=== PATIENT | male | born 1935 | race Caucasian/White ===

== ENCOUNTER 2020-10-31 15:13 | Emergency (ER) | payer MEDICARE, OTHER ==
--- NOTE | 2020-10-31 15:34 | EDM.PDOC ---
ED HPI GENERAL MEDICAL PROBLEM - General Stated Complaint: ER VISIT Time Seen by Provider: 10/31/20 15:15 Source of Information: Reports: Patient, EMS, Old Records History Limitations: Reports: Altered Mental Status (History of dementia.) - History of Present Illness INITIAL COMMENTS - FREE TEXT/NARRATIVE: Patient [facility] with concerns of respiratory issues and hypotension. HPI is primarily obtained from the [facility] and patient's clinic notes as he has dementia and really does not answer questions appropriately. When I ask him any questions about his review of systems such as chest pain shortness of breath he states the only time he has any shortness of breath or chest pain is when the nurses are talking to him. He otherwise denies any complaints and is not sure why he is in the emergency department. He knows he lives in [place] confused that he is at the hospital. He is confused that he lives in a [facility]. He does not know what year it is. According to EMS report the patient has had decreased level of activity some questionable wheezing and some hypotension he had a blood pressure in the 80s systolically when he was sitting at lunch. He just recently got over antibiotics for a lower respiratory tract infection. Upon EMS arrival his oxygen saturation was approximately 90%. They noted some wheezing he received a DuoNeb. He did not complain anything to them. He did have a blood pressure initially when he was sitting in the 80s systolically although when he was laying flat it was in the 130s. 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 We are unsure if he is received his Covid vaccine. - Related Data Allergies Allergy/AdvReac Type Severity Reaction Status Date / Time No Known Allergies Allergy Verified 05/05/15 08:33 Home Meds: Home Meds Betamethasone Dipropionate [Diprosone 0.05% Lotion] 1 dose TOP BID PRN 10/31/20 [History] Cyanocobalamin (Vitamin B-12) [Vitamin B-12] 1,000 mcg PO DAILY 10/31/20 [History] Furosemide [Lasix] 20 mg PO DAILY #15 tab 10/31/20 [Rx] L.acidoph,Paracasei, B.lactis [Probiotic] 1 each PO DAILY 10/31/20 [History] Levothyroxine Sodium [Levothyroxine] 137 mcg PO DAILY 10/31/20 [History] Memantine HCl [Namenda] 10 mg PO BID 10/31/20 [History] Tamsulosin [Tamsulosin 24 Hr] 0.8 mg PO DAILY 10/31/20 [History] Warfarin [Coumadin] 2.5 mg PO MOWEFR 10/31/20 [History] Warfarin [Coumadin] 5 mg PO SUTUTHSA 10/31/20 [History] bisacodyL [Bisacodyl] 5 mg PO DAILY PRN 10/31/20 [History] diphenhydrAMINE [Benadryl] 25 mg PO Q4H PRN 10/31/20 [History] guaiFENesin [Mucinex] 600 mg PO BID PRN 10/31/20 [History] guaiFENesin/Dextromethorphan [Guaifenesin Dm Syrup] 10 ml PO Q4H PRN 10/31/20 [History] hydrOXYzine HCL [Atarax] 25 mg PO DAILY 10/31/20 [History] hydrOXYzine HCL [Atarax] 25 mg PO Q6H PRN 10/31/20 [History] lisinopriL [Lisinopril] 2.5 mg PO DAILY 10/31/20 [History] ED ROS GENERAL - Review of Systems Review Of Systems: Comprehensive ROS is negative, except as noted in HPI. ED EXAM, GENERAL - Physical Exam Exam: See Below Exam Limited By: Altered Mental Status (Patient is pleasantly confused with dementia. He is not agitated. He is cooperative. But his answers are not appropriate for the questions) General Appearance: Alert, WD/WN, No Apparent Distress Eye Exam: Bilateral Eye: EOMI, PERRL Ears: Normal External Exam Nose: Normal Inspection Throat/Mouth: Normal Inspection Head: Atraumatic, Normocephalic Neck: Normal Inspection Respiratory/Chest: No Respiratory Distress, No Accessory Muscle Use, Chest Non- Tender, Rales (Bilaterally). No: Respiratory Distress, Rhonchi, Wheezing, Accessory Muscle Use, Retractions Cardiovascular: Normal Peripheral Pulses, No Rub, Systolic Murmur, Irregularly Irregular Peripheral Pulses: 2+: Radial (L), Radial (R), Posterior Tibial (L), Posterior Tibial (R), Dorsalis Pedis (L), Dorsalis Pedis (R) GI/Abdominal: Normal Bowel Sounds, Soft, Non-Tender, Pelvis Stable (Male) Exam: Deferred Rectal (Males) Exam: Deferred Back Exam: Normal Inspection Extremities: Normal Inspection, No Pedal Edema, Normal Capillary Refill Neurological: Alert, CN II-XII Intact, No Motor/Sensory Deficits, Confused Psychiatric: Normal Affect, Normal Mood Skin Exam: Warm, Dry, Intact, Normal Color, No Rash Course - Vital Signs Last Recorded V/S: Last Vital Signs Temp 98.8 F 10/31/20 15:15 Pulse 65 10/31/20 15:15 Resp 20 10/31/20 15:15 BP 132/80 10/31/20 15:15 Pulse Ox 88 L 10/31/20 15:15 - Orders/Labs/Meds Orders: Active Orders 24 hr Category Date Time Status PROCALCITONIN [REF] Stat Lab 10/31/20 15:30 Received Labs: Laboratory Tests 10/31/20 10/31/20 10/31/20 Range/Units 15:30 15:30 15:30 WBC 8.4 (4.0-10.0) x10^3/uL RBC 5.17 (4.5-6.0) x10^6/uL Hgb 14.8 (14.0-18.0) g/dL Hct 44.5 (40.0-52.0) % MCV 86.1 (78.0-93.0) fL MCH 28.6 (26.0-32.0) pg MCHC 33.3 (32.0-36.0) g/dL RDW Coeff of Herb 16.0 H (10.0-15.0) % Plt Count 165 (130-400) x10^3/uL Neut % (Auto) 58.4 (50.0-80.0) % Lymph % (Auto) 28.2 (25.0-50.0) % [place] % (Auto) 9.8 (2.0-11.0) % Eos % (Auto) 3.2 (0.0-4.0) % Baso % (Auto) 0.4 (0.2-1.2) % PT 17.5 H (9.9-12.5) SEC INR 1.6 L (2.0-3.5) APTT 29.6 (25.6-32.8) SEC VBG pH (7.33-7.43) pH VBG pCO2 (41-51) mmHG VBG pO2 mmHG VBG HCO3 (22-29) mmol/L VBG Total CO2 (23-30) mmol/L VBG O2 Saturation % VBG Base Excess ((-2)-3) mmol/L Sodium 143 (136-145) mmol/L Potassium 4.7 (3.5-5.1) mmol/L Chloride 106 (98-107) mmol/L Carbon Dioxide 25 (21-32) mmol/L Anion Gap 16.7 H (5-15) mmol/L BUN 27 H (7-18) mg/dL Creatinine 1.4 H (0.70-1.30) mg/dL Est Cr Clr Drug Dosing TNP Estimated GFR (MDRD) 48 Glucose 72 (70-99) mg/dL Lactic Acid (0.4-2.0) mmol/L Calcium 8.4 L (8.5-10.1) mg/dL Corrected Calcium 9.0 (8.5-10.1) mg/dL Magnesium 2.2 (1.8-2.4) mg/dL Total Bilirubin 0.5 (0.2-1.0) mg/dL AST 12 L (15-37) U/L ALT 24 (16-63) U/L Alkaline Phosphatase 85 (46-116) U/L Troponin I High Sens 10 (<=76) ng/L C-Reactive Protein 1.1 H (<=0.9) mg/dL NT-Pro-B Natriuret Pep 2377 H (<=450) pg/mL Total Protein 7.7 (6.4-8.2) g/dL Albumin 3.3 L (3.4-5.0) g/dL Globulin 4.4 Albumin/Globulin Ratio 0.75 10/31/20 10/31/20 Range/Units 15:30 15:30 WBC (4.0-10.0) x10^3/uL RBC (4.5-6.0) x10^6/uL Hgb (14.0-18.0) g/dL Hct (40.0-52.0) % MCV (78.0-93.0) fL MCH (26.0-32.0) pg MCHC (32.0-36.0) g/dL RDW Coeff of Herb (10.0-15.0) % Plt Count (130-400) x10^3/uL Neut % (Auto) (50.0-80.0) % Lymph % (Auto) (25.0-50.0) % [place] % (Auto) (2.0-11.0) % Eos % (Auto) (0.0-4.0) % Baso % (Auto) (0.2-1.2) % PT (9.9-12.5) SEC INR (2.0-3.5) APTT (25.6-32.8) SEC VBG pH 7.37 (7.33-7.43) pH VBG pCO2 45 (41-51) mmHG VBG pO2 47 mmHG VBG HCO3 26 (22-29) mmol/L VBG Total CO2 27 (23-30) mmol/L VBG O2 Saturation 81 % VBG Base Excess 0 ((-2)-3) mmol/L Sodium (136-145) mmol/L Potassium (3.5-5.1) mmol/L Chloride (98-107) mmol/L Carbon Dioxide (21-32) mmol/L Anion Gap (5-15) mmol/L BUN (7-18) mg/dL Creatinine (0.70-1.30) mg/dL Est Cr Clr Drug Dosing Estimated GFR (MDRD) Glucose (70-99) mg/dL Lactic Acid 1.3 (0.4-2.0) mmol/L Calcium (8.5-10.1) mg/dL Corrected Calcium (8.5-10.1) mg/dL Magnesium (1.8-2.4) mg/dL Total Bilirubin (0.2-1.0) mg/dL AST (15-37) U/L ALT (16-63) U/L Alkaline Phosphatase (46-116) U/L Troponin I High Sens (<=76) ng/L C-Reactive Protein (<=0.9) mg/dL NT-Pro-B Natriuret Pep (<=450) pg/mL Total Protein (6.4-8.2) g/dL Albumin (3.4-5.0) g/dL Globulin Albumin/Globulin Ratio Meds: Medications Discontinued Medications Generic Name Dose Route Start Last Admin Trade Name Laura PRN Reason Stop Dose Admin Furosemide 20 mg 10/31/20 17:05 10/31/20 17:11 Furosemide 20 Mg/2 Ml Vial IV 10/31/20 17:06 20 mg ONETIME ONE Administration - Radiology Interpretation Free Text/Narrative:: Chest x-ray initially reviewed extemporaneously by myself showed some concern of heart failure. No hemopneumothorax. Chest x-ray per radiology shows mild congestive heart failure. Low lung volumes with bibasilar atelectasis. - Re-Assessments/Exams Free Text/Narrative Re-Assessment/Exam: 10/31/20 21:11 The patient initially had oxygen saturation at 88% on room air he was placed on 2 L. Laboratory evaluation with a rather unremarkable CBC. Normal venous blood gases. CMP with a creatinine of 1.4 and a BUN at 27 which is minimally up from his baseline of about 1.1 and 20. Liver enzymes are unremarkable. Troponin is negative at 10. Lactic acid is also negative at 1.3. CRP 1.1. proBNP 2377 While the patient is in the emergency department he rested quite comfortably. We are actually able to keep the oxygen off of him and his sats stayed at 96% on room air. I did speak with the patient's primary care provider about my concern with the chest x-ray concerning for congestive heart failure as well as his elevated proBNP this is most likely the cause of his rails and his decreased activity that has been reported at the [facility]. Although he is alert appropriate for his dementia and without any distress. We will start him on some Lasix he was given 20 mg IV in the emergency department we will place him on 20 mg at the [facility] to be continued. We will have him watch his blood pressures over the next week and have these communicated with his primary care provider. Anything new or worse he is to recheck. Patient's blood pressure while he was sitting in the emergency department was about 140 systolically. Departure - Departure Time of Disposition: 17:07 Disposition: DC/Tfer to [facility] 03 Clinical Impression: CHF, Congestive heart failure, Acute kidney injury - Discharge Information Prescriptions: Furosemide [Lasix] 20 mg PO DAILY #15 tab Instructions: Heart Failure, Self Care, [id number], Heart Failure, Diagnosis, [id number] Referrals: Kasey Hillman DO [Primary Care Provider] - Forms: ED Department Discharge Additional Instructions: Return to the detention. Continue previous therapies. Start Lasix 20mg daily, first dose given in the ED and RX sent to [facility]. Fax Dr. Hillman next week with daily BP and HR for following. Recheck in the ED if new or worsening symptoms. Sepsis Event Note (ED) - Focused Exam Vital Signs: Vital Signs Temp Pulse Resp BP Pulse Ox 10/31/20 15:15 98.8 F 65 20 132/80 88 L - My Orders Last 24 Hours: My Active Orders 10/31/20 15:30 PROCALCITONIN [REF] Stat - Assessment/Plan Last 24 Hours: My Active Orders 10/31/20 15:30 PROCALCITONIN [REF] Stat
[2020-10-31 15:41] LABS: BASE EXCESS VENOUS 0 mmol/L ((-2)-3); BICARBONATE,VENOUS 26 mmol/L (22-29); O2 SATURATION VENOUS 81 %; PCO2 VENOUS 45 mmHG (41-51); PH,VENOUS 7.37 pH (7.33-7.43); PO2 VENOUS 47 mmHG
[2020-10-31 15:53] LABS: PTT,PARTIAL THROMBOPLSTIN TIME 29.6 SEC (25.6-32.8)
--- NOTE | 2020-10-31 16:02 | CR ---
[id number] RAD/RAD Chest PA or AP 1V EXAM: FRONTAL CHEST INDICATION: HYPOXIA, QUESTION CONGESTIVE HEART FAILURE. COMPARISON: February 08, 2013. DISCUSSION: Low lung volumes. Mild to moderate elevation right hemidiaphragm. Cardiomegaly with development of mild to moderate central vascular congestion. Volume loss in both lung bases could obscure other underlying pathology. IMPRESSION: 1. Mild congestive heart failure. 2. Low lung volumes with bibasilar atelectasis. Bobby Spencer MD 10/31/20 1600 Thank you for allowing us to participate in the care of your patient.
[2020-10-31 16:07] LABS: CHLORIDE,CL 106 mmol/L (98-107); SODIUM,NA 143 mmol/L (136-145)
[2020-10-31 16:09] LABS: ANION GAP 16.7 mmol/L (5-15)
[2020-10-31 16:35] VITALS: BP 132/80; PULSE 65
--- NOTE | 2020-10-31 16:40 | PCM.EKG ---
#1 Interpretation EKG Date: 10/31/20 Time: 15:48 Rhythm: A-Fib Rate (Beats/Min): 67 [place]: RAD-Right [place] Deviation P-Wave: Absent QRS: Normal ST-T: Normal QT: Normal Comparison: No Change
[2020-10-31] MEDS ORDERED: Furosemide 20 MG/2 ML VIAL IV ONE (17:05)
== END 2020-10-31 18:00 ==
LOC: VM.ED 15:13
DX: I50.9 Heart failure, unspecified (principal); N17.9 Acute kidney failure, unspecified; R41.0 Disorientation, unspecified; F03.90 Unspecified dementia, unspecified severity, without behavioral disturbance, psychotic disturbance, mood disturbance, and anxiety; E03.9 Hypothyroidism, unspecified; Z79.899 Other long term (current) drug therapy
CPT/HCPCS: 71045; 80053; 82803; 83605; 83735; 83880; 84145; 84484; 85025; 85610; 85730; 86140; 93005; 96374; 99283; 99285-25; J1940

== ENCOUNTER 2020-11-03 11:06 | Inpatient (IN) | payer MEDICARE, OTHER ==
[2020-11-03] MEDS ORDERED: Sodium Chloride 0.9% 10 ML Syringe FLUSH PRN (12:43)
[2020-11-03] MEDS ORDERED: Furosemide 20 MG/2 ML VIAL IV ONE (12:57)
[2020-11-03] MEDS ORDERED: diphenhydrAMINE 25 MG Cap PO PRN (12:57)
[2020-11-03] MEDS ORDERED: Bisacodyl 5 MG Tab PO PRN (12:57)
[2020-11-03] MEDS ORDERED: hydrOXYzine HCl 25 MG Tab PO PRN (12:57)
[2020-11-03] MEDS ORDERED: guaiFENesin 600 MG Tab.ER PO PRN (13:00)
[2020-11-03 14:00] LABS: ANION GAP 14.3 mmol/L (5-15)
--- NOTE | 2020-11-03 14:22 | CR ---
[id number] RAD/RAD Chest PA or AP 1V EXAM: RAD Chest PA or AP 1V INDICATION: HYPOXIA, CRACKLE AND WHEEZING CHEST. COMPARISON: October 31, 2020. DISCUSSION: Cardiomediastinal silhouette is interval. Central pulmonary vascular congestion. Patchy opacifications overlying the lungs bilaterally most pronounced at the left lung base. No pneumothorax or pleural effusion. IMPRESSION: Findings most consistent with CHF exacerbation. Derek Key DO 11/03/20 1421 Thank you for allowing us to participate in the care of your patient.
[2020-11-03] MEDS: Memantine 10 MG Tab PO SCH (19:44)
--- NOTE | 2020-11-03 19:49 | HP ---
CHIEF COMPLAINT: Hypoxia. HISTORY OF PRESENT ILLNESS: This is an 84-year-old with shortness of breath and cough over several weeks. In fact, he was seen in the clinic on 10/20/2020 for his symptoms, diagnosed with bronchitis, placed on doxycycline for seven days and encouraged to return if not improving. It should also be noted he had normal white count on 10/20/2020, and kidney function was normal. ESR was normal. Then, on 10/31/2020, he had low blood pressures at the [facility]. He had not been on scheduled Lasix, only p.r.n.; came in, blood pressure was actually 130 in the ER and he was evaluated and worked up for his shortness of breath and hypotension. X-ray was showing fluid congestion and his proBNP was over 2300. He was started on Lasix 20 mg daily. However, he really has not improved, his lungs continue to sound rattly. He has had sats in like the 84 to 91% range, on room air 84%, but he does not always leave on his oxygen. He has been lethargic. He falls asleep at meals. He needs wheelchair rides and it is just not his normal routine. He has been eating and drinking okay and drank 1000 mL of fluid, and urine output was four times in a 12-hour shift. He does have a history of BPH and is on Flomax. He has dementia, so the history is limited from him. Well, he asked me if he is in [place] or [place]. Also, the patient has some poor teeth. He was supposed to have them pulled, some dental work in a couple of weeks, but denies that they are causing him any pain, and his T-max was 99.1. ALLERGIES: Include penicillin and lanolin. MEDICATIONS: His medication list currently includes the Lasix 20 mg daily; B12 1000 mcg daily; Flomax 0.8 at bedtime; Coumadin is as directed per the [facility] which would be 5 mg on Tuesday, Tuesday, , and Tuesday and 2.5 the rest of the week. He is also on steroid creams, Atarax for itching, Namenda 10 mg twice daily, levothyroxine 137 mcg daily, lisinopril 2.5 daily. PAST MEDICAL HISTORY: Does include the BPH; chronic atrial fibrillation, on successful cardioversions in the past; dilated aortic root with aortic regurgitation; essential hypertension; hypothyroidism; moderate dementia without behavioral disturbance; Alzheimer. PAST SURGICAL HISTORY: Surgically, has had a TURP in the past for enlarged prostate. He has also had tonsil surgery; back surgery; lumbar disk surgery; hydrocelectomy on the left; hernia repair on the right, inguinal; eye surgery for cataracts. FAMILY HISTORY: Both parents are . He had two brothers , sister of lung disease. SOCIAL HISTORY: He is . He is a nonsmoker, nondrinker. He has a son Porfirio whom I spoke with on the phone, , who lives out of state. REVIEW OF SYSTEMS: Constitutional: The patient is not aware of any weight changes, but based on [facility] weights, he was up 15 pounds in the two months from 08/2020. He has not had any fever, chills. No leg swelling. No trouble swallowing. Cardiac: He denies any chest pain. No palpitations. Respiratory: He has not noticed that he is short of breath. He is not coughing by his report. Otherwise, all systems reviewed and found to be negative unless otherwise stated. LABORATORY DATA: Last echo showed an EF of 60% back in 10/2016, and he had moderate aortic regurgitation at that time. Otherwise, the EKG did show atrial fibrillation. White count normal at 9.6, hemoglobin 13.8, platelets 154, ESR 22, INR 2.1, sodium 141, potassium 4.3, chloride 104, bicarb 27, BUN 30, creatinine 1.3, glucose 94, lactic 0.7, calcium 8.5, bilirubin 1, AST 14, ALT 22, troponin 9, CRP 11, proBNP up to 2911, albumin 3.2. COVID testing negative. Chest x-ray shows pulmonary congestion consistent with CHF. ASSESSMENT AND PLAN: 1. Acute on chronic diastolic heart failure exacerbation with known ejection fraction of 60%. The patient will start on IV Lasix, 20 mg IV given x1. We will continue to monitor his blood pressure closely and adjust the dose as able. 2. Urinary retention. Postvoid was 600. A Lama will be placed for strict in's and out's and to allow for appropriate diuresis. This will allow me to hold the Flomax to aid better diuresis. 3. Atrial fibrillation. He is currently rate controlled. We will continue Coumadin. 4. Essential hypertension. I will hold his lisinopril if his systolic blood pressure is under 100. He does not have a history of systolic blood pressure. 5. Dementia. We will continue his Namenda. 6. Need for dental work. He is not currently having any pain. He is not having a fever or signs of infection. The patient will be admitted for acute cares for IV diuresis. We will repeat his lab work tomorrow. Given his atrial fibrillation, we will monitor him on telemetry to ensure no tachycardia. Anticipate he will be in the hospital at least two nights. He is a code level 3. MKA: 11/03/2020 16:44:01 MODL: 11/03/2020 19:42:18 /[id number]
[2020-11-03] MEDS ORDERED: Tamsulosin 0.4 MG Cap.ER PO SCH (20:00)
[2020-11-03] MEDS ORDERED: Warfarin 2.5 MG Tab PO SCH (20:00)
[2020-11-03] MEDS ORDERED: LORazepam 2 MG/ML SDV IVPUSH PRN (20:31)
[2020-11-03] MEDS ORDERED: Flumazenil 0.1 MG/ML 5 ML MDV IVPUSH PRN (20:31)
[2020-11-04] MEDS: Levothyroxine 25 MCG Tab PO SCH (06:20)
[2020-11-04] MEDS: Levothyroxine 125 MCG Tab PO SCH (06:20)
[2020-11-04] MEDS: Cyanocobalamin (Vitamin B12) 1,000 MCG Tab PO SCH (07:46)
[2020-11-04] MEDS: Lisinopril 2.5 MG Tab PO SCH (07:46)
[2020-11-04] MEDS: Memantine 10 MG Tab PO SCH ×2 (07:46→20:00)
[2020-11-04] MEDS: Lactobacillus Rhamnosus GG (Probiotic) Cap PO SCH (07:46)
[2020-11-04] MEDS ORDERED: hydrOXYzine HCl 25 MG Tab PO SCH (08:00)
[2020-11-04] MEDS ORDERED: QUEtiapine 25 MG Tab PO PRN (08:52)
[2020-11-04] MEDS ORDERED: Furosemide 40 MG/4 ML VIAL IV ONE (09:30)
[2020-11-04] MEDS: Amoxicillin/Clavulanate K 875-125 MG Tab PO SCH ×2 (09:53→17:51)
[2020-11-04] MEDS: Finasteride 5 MG Tab PO SCH (09:53)
[2020-11-04] MEDS: Albuterol/Ipratropium 3.0-0.5 MG/3 ML Neb Soln NEB SCH ×2 (09:53→14:41)
--- NOTE | 2020-11-04 10:17 | PN ---
Progress Note for ADRIANE JARAMILLO Date: 11/04/2020 Room #: VM.202 SUBJECTIVE: This is hospital day #2 on an 84-year-old admitted for a diastolic heart failure exacerbation. He has known aortic regurgitation and atrial fibrillation. Telemetry has shown atrial fibrillation but no tachycardia. He has improved oxygen-minor overnight. He has not been keeping on his oxygen, but he is now 94% on room air. He did get IV Lasix yesterday and had an increased postvoid residual. Catheter was placed, and he had 1200 out. After placing the Lama, he had only another 500 overnight. He is denying any pain but did have low-grade fever around 100.1 and has some known dental problems, some "rotted teeth" per [facility] staff, although patient is denying any pain, and I did not see any obvious concerns on his external dental exam. He was eating well on admission but did not eat anything this morning. He has not been lethargic here. In fact, he was a little bit restless overnight, pulled on his catheter, and now is having some bloody drainage. He did get Ativan and then slept well. OBJECTIVE: Vital Signs: His weight 88.6 kg, pulse 80, blood pressure 146/85, temperature 98, respiratory rate 20, and O2 of 94% on room air. General: He is in no acute distress. He is resting comfortably but does answer questions appropriately with yes or no or his location, he reports [place]. Heart: His heart is irregularly irregular with murmur. Lungs: His lung sounds still have decreased sounds and rhonchi. I do not appreciate any wheezing this morning but nursing had earlier. Abdomen: His abdomen is nondistended, nontender. Extremities: Warm and dry. No edema. Genitourinary: Lama in place with blood that is anaya. No large clots in the catheter. Mental Status: He is disorientated. LABORATORY DATA: Lab work does show hemoglobin 13.5, white count 9.7, and platelets 174. Sodium 142, potassium 4, chloride 106, bicarbonate 25, BUN 31, creatinine 1.2, glucose 98, and calcium 8.4. ASSESSMENT: 1. Acute on chronic diastolic heart failure exacerbation with known ejection fraction of 60% back in 2017. We will continue with intravenous Lasix but increase him to 40 mg intravenous one time today and repeat this afternoon depending on blood pressures and output. 2. Urinary retention due to BPH. We will leave the Lama in place. We will restart his Flomax. He missed it last night. His catheter was in place and concern was for lower blood pressures and also put him on Proscar. 3. Hematuria. We will continue to monitor closely. We will repeat a CBC. I will hold Coumadin today. 4. Atrial fibrillation, rate controlled. He has been pulling off his tele. I will discontinue that. 5. Essential hypertension. He has lisinopril available with holding parameters and intravenous Lasix for diuresis should help. 6. Dementia. He is on Namenda. 7. Delirium due to underlying dementia. I will have some Seroquel available p.r.n. We will try to avoid benzodiazepines. 8. Likely dental infection with low-grade fevers. We will start him on Augmentin. PLAN: The patient will continue on acute cares. We will keep the Lama in place. Hopefully, he does not pull on it again, just for another 24 hours and then try a voiding trial. We would like to get these medications on board prior to the voiding trial. I will give him IV Lasix. We will repeat lab work tomorrow. MKA: 11/04/2020 09:31:50 MODL: 11/04/2020 10:05:55 /[id number]
--- NOTE | 2020-11-04 18:18 | PCM.EKG ---
#1 Interpretation EKG Date: 11/03/20 Rhythm: A-Fib [place]: LAD-Left [place] Deviation P-Wave: Absent QRS: Normal ST-T: Normal QT: Normal Comparison: No Change
[2020-11-04] MEDS ORDERED: Warfarin 5 MG Tab PO SCH (20:00)
[2020-11-04] MEDS: Tamsulosin 0.4 MG Cap.ER PO SCH (20:01)
[2020-11-04] MEDS: hydrOXYzine HCl 25 MG Tab PO SCH (20:01)
[2020-11-05] MEDS: Albuterol/Ipratropium 3.0-0.5 MG/3 ML Neb Soln NEB SCH ×4 (00:20→23:50)
[2020-11-05] MEDS: Levothyroxine 125 MCG Tab PO SCH (08:11)
[2020-11-05] MEDS: Levothyroxine 25 MCG Tab PO SCH (08:11)
[2020-11-05] MEDS: Finasteride 5 MG Tab PO SCH (08:12)
[2020-11-05] MEDS: Cyanocobalamin (Vitamin B12) 1,000 MCG Tab PO SCH (08:12)
[2020-11-05] MEDS: Amoxicillin/Clavulanate K 875-125 MG Tab PO SCH ×2 (08:12→17:44)
[2020-11-05] MEDS: Lactobacillus Rhamnosus GG (Probiotic) Cap PO SCH (08:12)
[2020-11-05] MEDS: Memantine 10 MG Tab PO SCH ×2 (08:12→19:39)
[2020-11-05] MEDS ORDERED: Furosemide 20 MG/2 ML VIAL IV ONE (08:13)
[2020-11-05] MEDS: Lisinopril 2.5 MG Tab PO SCH (08:19)
[2020-11-05] MEDS ORDERED: LORazepam 2 MG/ML SDV IVPUSH PRN (09:08)
--- NOTE | 2020-11-05 09:54 | PN ---
Progress Note for ADRIANE JARAMILLO Date: 11/05/2020 Room #: VM.202 SUBJECTIVE: This is hospital day #3 on an 84-year-old admitted with heart failure exacerbation. Yesterday, he had excellent diuresis. He was down 1.3 L. He is down 2.9 L overall, but his blood pressure was low in the afternoon, so I did not re-dose Lasix. He has not been lightheaded or dizzy. He denies any shortness of breath. He did do some coughing after deep breathing. He denies any abdominal pain. He is eating 75% of dinner last evening. Getting ready to eat breakfast this morning. He did say, "who is this" to the nurses, and then when I tried to answer him, he told me to shut up, but otherwise has not had any behaviors. Did joke with a nurse about wanting to bite her hand, but did not do that. She gave him his toast. The patient did sleep quite well last night. He did get the IV Ativan at bedtime. He did not get any Seroquel. OBJECTIVE: Vital Signs: His temperature is 97.8, but he did have a T-max of 100 at 6 a.m. Weight 84.1 kg, which is down significantly at least 4 pounds since admission. Pulse 86, blood pressure 113/62, respiratory rate 20, and O2 of 93% on room air. General: He is in no acute distress. Heart: Irregularly irregular with murmur. Lungs: Lung sounds decreased with rhonchi, but improving. No wheezing. Abdomen: Has positive bowel sounds. Soft, nontender. Genitourinary: Lama in place. He does have red urine. It had actually lightened up yesterday with more urine output, but it is a little bit darker this morning, but no clots. Extremities: Warm and dry. No edema. Mental Status: He is completely disoriented. LABORATORY WORK: Does show him to have a white count of 10.1, hemoglobin 13.8, platelets 194. INR 2.2. Sodium 142, potassium 4, chloride 104, bicarb 28, BUN 35, creatinine 1.2, glucose 103, calcium 8.4, albumin 3.2 previously. ASSESSMENT: 1. Acute on chronic diastolic heart failure exacerbation with no recent echoes on file. He also has aortic regurgitation. He is improving with diuresis. We will give him 20 mg of IV Lasix today and then we will try a voiding trial later after he is diuresed for a couple of hours. 2. Urinary retention due to benign prostatic hyperplasia. He has been started on Proscar. He is also on his Flomax. 3. Hematuria. He is on Coumadin. We have been holding that. INR is therapeutic. We will continue to monitor. 4. Atrial fibrillation, now rate controlled on home medications. 5. Essential hypertension, controlled. Lisinopril is available with holding parameters. His blood pressure is up over 100 again this morning. 6. Dementia, on Namenda. 7. Delirium. He did get intravenous Ativan last night. I am going to decrease the dose. I would actually prefer that he use the Seroquel. 8. Likely dental infection with low-grade fevers. He is on day #2 of Augmentin. 9. Mild malnutrition. PLAN: The patient will continue acute cares. We will remove the Lama today for a voiding trial. We will continue IV Lasix. We will repeat lab work tomorrow and anticipate he will be likely stable enough for return to [facility]. By then, we will also check a urine today and repeat his chest x- ray due to the low-grade fevers. MKA: 11/05/2020 09:10:21 MODL: 11/05/2020 09:48:58 /[id number]
--- NOTE | 2020-11-05 12:42 | CR ---
[id number] RAD/RAD Chest PA or AP 1V EXAM: SINGLE VIEW CHEST. INDICATION: DIFFICULTY BREATHING COUGH COMPARISON: CORRELATION IS MADE WITH NOVEMBER 03, 2020 FINDINGS: The mediastinum is abnormally prominent Consider CT chest with IV contrast There is no pneumonia or edema. The aorta is tortuous The cardiac silhouette is enlarged IMPRESSION: NO PNEUMONIA OR EDEMA ABNORMAL PROMINENCE OF MEDIASTINAL Flavio Logan MD 11/05/20 [id number] Thank you for allowing us to participate in the care of your patient.
[2020-11-05] MEDS: Tamsulosin 0.4 MG Cap.ER PO SCH (19:39)
[2020-11-05] MEDS: hydrOXYzine HCl 25 MG Tab PO SCH (19:39)
[2020-11-06 05:25] VITALS: PULSE 70
[2020-11-06] MEDS: Albuterol/Ipratropium 3.0-0.5 MG/3 ML Neb Soln NEB SCH (07:03)
[2020-11-06] MEDS: Levothyroxine 25 MCG Tab PO SCH (07:11)
[2020-11-06] MEDS: Levothyroxine 125 MCG Tab PO SCH (07:11)
[2020-11-06] MEDS: Cyanocobalamin (Vitamin B12) 1,000 MCG Tab PO SCH (07:12)
[2020-11-06] MEDS: Lactobacillus Rhamnosus GG (Probiotic) Cap PO SCH (07:12)
[2020-11-06] MEDS: Amoxicillin/Clavulanate K 875-125 MG Tab PO SCH (07:12)
[2020-11-06] MEDS: Memantine 10 MG Tab PO SCH (07:12)
[2020-11-06] MEDS: Finasteride 5 MG Tab PO SCH (07:12)
[2020-11-06] MEDS: Lisinopril 2.5 MG Tab PO SCH (07:21)
[2020-11-06 07:22] VITALS: BP 174/80
[2020-11-06 07:44] LABS: ANION GAP 12.9 mmol/L (5-15)
[2020-11-06] MEDS ORDERED: Furosemide 80 MG Tab PO ONE (08:14)
--- NOTE | 2020-11-06 21:23 | DISCH ---
PRIMARY DISCHARGE DIAGNOSES: 1. Acute on chronic diastolic heart failure exacerbation with known aortic root dilation and aortic regurgitation with EF of 60% back in 10/2016. 2. Urinary obstruction due to benign prostatic hyperplasia, improved with medications. 3. Hematuria due to the catheter, resolved. 4. Atrial fibrillation, on anticoagulation with Coumadin. Discharging INR was 1.8 due to holding Coumadin for hematuria. 5. Dementia, moderate to severe, living [place] [facility]. 6. Delirium, improved. He was resting better. Did get some IV Ativan, but none last night and did not ever require any Seroquel. 7. Possible dental infection on Augmentin, day #3. 8. Mild malnutrition. 9. Reactive airway disease, improving with nebs, treated outpatient with doxycycline. REASON FOR ADMISSION: On the date of admission, this 84-year-old who had been having a cough and respiratory symptoms over the past 3 weeks had already been treated with doxycycline. He was reported to have low O2 saturations. He had recently been in the ER and started on Lasix. He was urinating quite a bit, but his sats were still 84% and he was not keeping on his oxygen. He was denying any pain, but he was having noticeable trouble breathing when he came in and had adventitious lung sounds, although he was alert, he was sitting up, he was eating, he was not choking on his food. Chest x-ray was showing fluid. He responded well to IV Lasix. Bladder scan revealed greater than 600 and he was cathed for 1200. On the 1st night when the Lama was in place, the patient pulled on it and began having some hematuria. His INR was over 2. His Coumadin was held and the hematuria improved and yesterday his Lama catheter was removed and he passed his voiding trial. His postvoid was still around 300 but he was on his Flomax and started on Proscar, a new medication. The patient otherwise was negative over 3 L. OBJECTIVE: Vital Signs: On discharge, his weight was 83.1 kg, which is down. His blood pressure 117/80, his temp 98.4, pulse 70, respiratory rate 20, and O2 of 90 on room air. Repeat x-ray yesterday did show some improvements. Heart: Irregularly irregular on discharge without murmur. Lungs: Lung sounds decreased, still with some rhonchi, but no wheezing. Abdomen: Nondistended, nontender. Extremities: Warm and dry. No edema. Mental Status: He is disoriented other than the fact he does state he lives on [facility], but did not specifically say or even remember that [facility]. He had no behaviors other than verbal. When asked if he had any pain, he said it was the aide who was trying to help him brush his teeth. He had no dental pain during his stay and decision is made to postpone his dental extractions because he would need anesthesia for that. DISCHARGING LABS: White count 9.7, hemoglobin 13.7, platelets 190. INR 1.8. Sodium 143, potassium 3.9, chloride 106, bicarb 28, BUN 39, creatinine 1.2, glucose 101, calcium 8.6. COVID testing again negative. UA did show 5-10 wbc's and 75-100 of blood with the Lama. DISCHARGE PLANS AND INSTRUCTIONS: He will follow up on custodial rounds in November. He will have lab work with a BMP in 1 week. His Lasix was increased to 40 mg daily and he will continue with that. He will be on DuoNebs to help his breathing and he will continue Proscar for the prostate. Dental work will be postponed until November. He will have an INR on Tuesday. Greater than 30 minutes spent on this discharge process. His son, Porfirio, was also updated on the plan for discharge and the plan not to pursue any further imaging for his aortic root dilation, which is longstanding since 2014. MKA: 11/06/2020 10:12:18 MODL: 11/06/2020 21:15:11 /[id number]
[2020-11-10] MEDS ORDERED: BETAMETHASONE DIPROPIONATE TOP SCH (08:00)
== END 2020-11-06 09:53 | DRG 292 ==
LOC: VM.MS 11:13
PROVIDERS: ADMIT Internal Medicine; ATTEND Internal Medicine
DX: I11.0 Hypertensive heart disease with heart failure (principal); E46 Unspecified protein-calorie malnutrition; T83.83XA Hemorrhage due to genitourinary prosthetic devices, implants and grafts, initial encounter; I48.20 Chronic atrial fibrillation, unspecified; I50.33 Acute on chronic diastolic (congestive) heart failure; I35.1 Nonrheumatic aortic (valve) insufficiency; N40.1 Benign prostatic hyperplasia with lower urinary tract symptoms; R33.8 Other retention of urine; R31.9 Hematuria, unspecified; F03.90 Unspecified dementia, unspecified severity, without behavioral disturbance, psychotic disturbance, mood disturbance, and anxiety; Z20.822 Contact with and (suspected) exposure to COVID-19; E03.9 Hypothyroidism, unspecified; K04.7 Periapical abscess without sinus; J45.909 Unspecified asthma, uncomplicated; Z88.0 Allergy status to penicillin; Z88.8 Allergy status to other drugs, medicaments and biological substances; Z79.890 Hormone replacement therapy; Z79.899 Other long term (current) drug therapy; Z68.24 Body mass index [BMI] 24.0-24.9, adult
CPT/HCPCS: 36415; 51798; 71045; 80048; 80053; 81001; 83605; 83735; 83880; 84484; 85025; 85610; 85652; 86140; 87086; 93005; 94640; 94760; A9270-GY; J1940; J2060; J7620-GY; U0002